=== PATIENT | male | born 2005 | race Caucasian/White ===

== ENCOUNTER 2023-07-17 12:09 | Emergency (ER) | payer BC, SELFPAY ==
[2023-07-17 12:15] VITALS: BP 140/73; PULSE 58; RESP 16; TEMP 36.8; O2SAT 100
[2023-07-17 12:34] LABS: Glucose Point of Care 87 mg/dl (65-105)
--- NOTE | 2023-07-17 13:04 | ED.GENADULT ---
HPI - General Adult General Chief complaint: Upper Respiratory Infection Stated complaint: Throat Irritation Source: patient Mode of arrival: ambulatory Limitations: no limitations History of Present Illness HPI narrative: Patient presents for evaluation of painful ulcerative lesion to the posterior pharynx for the past four days. He states that at baseline his symptoms are 4/10 severity but increases to 8/10 with swallowing. He denies a sore throat per se, indicating that his pain is localized to the lesion. He denies any fever, chills, nausea, vomiting, cough, otalgia. No history of similar symptoms. He does not smoke. No recent sick contacts to his knowledge. He denies any recent excessive intake of citrus but states that he does consume quite a bit of salty foods. Denies history of HSV. Related Data Allergies Allergy/AdvReac Type Severity Reaction Status Date / Time No Known Allergies Allergy Unverified 07/17/23 12:20 Review of Systems Review of Systems: CONSTITUTIONAL: Denies fever, chills, or sweats. EYES: Denies visual changes, redness, or discharge. ENT: Reports painful lesion to the posterior pharynx. Denies otalgia, sinus congestion and drainage. CARDIOVASCULAR: Denies chest pain, palpitations, or edema. RESPIRATORY: Denies cough or dyspnea. GASTROINTESTINAL: Denies abdominal pain, nausea, vomiting, or diarrhea. GENITOURINARY: Denies dysuria or hematuria. SKIN: Denies rash or itching. MUSCULOSKELETAL: Denies back pain, joint pain, or myalgia. NEUROLOGIC: Denies headache, numbness, dizziness, or weakness. PSYCHIATRIC: Denies anxiety or depression. [facility] Past Medical History Medical History No pertinent past medical history Surgical History Surgical History No pertinent past surgical history Family History Family History Mother Family history non-contributory Social History Social History Smoking status: Never smoker Alcohol intake: never Substance use: never Living arrangements: with family Occupation/Education: student Gender identity (if verbalized by the patient): Male Spiritual care concerns: No Exam Narrative: GENERAL: Well-appearing, well-nourished, and in no acute distress. HEAD: Normocephalic, atraumatic. EYES: PERRLA and EOMI. ENT: Nares clear, no rhinorrhea or epistaxis. Mucous membranes moist. There is an approximately 1 cm ulcerative lesion to the right side of the posterior pharynx with surrounding erythema. Bilateral TMs pearly robertson nonbulging NECK: Supple. No adenopathy or masses. No carotid bruits or JVD CHEST: Clear to auscultation. No respiratory distress. No wheezes rales or rhonchi HEART: Regular rate and rhythm. No murmur heard. Normal peripheral pulses. ABDOMEN: Soft, nontender, nondistended, normal active bowel sounds. EXTREMITIES: Normal range of motion. No edema. SKIN: Warm, dry, no rash. NEURO: No focal deficits. Alert and oriented x3. PSYCH: Normal mood and affect. Course Course Emergency Course: This is a 17-year-old male who presented for evaluation of a painful sore to the posterior pharynx. Strep was obtained and negative. Send for culture. Viral culture obtained although patient has no history of HSV. This appears to be a canker sore. Will discharge with chlorhexidine and viscous lidocaine. Recommended oral hygiene measures. Follow up with primary provider. Go to the ER for worsening symptoms. Patient in agreement with plan of care. Level of Care: Express Care Visit Vital Signs Vital signs: Vital Signs Temperature 36.8 C 07/17/23 12:15 Pulse Rate 58 L 07/17/23 12:15 Respiratory Rate 16 07/17/23 12:15 Blood Pressure 140/73 07/17/23 12:15 Pulse Oximetry 100 07/17/23 12:15
== END 2023-07-17 13:00 | disposition home or self-care (01) ==
PROVIDERS: Emergency Provider Nurse Practitioner
DX: K12.0 Recurrent oral aphthae (principal)
CPT/HCPCS: 82948; 87081; 87255; 87880; 99203; G0463